=== PATIENT | male | born 1950 | race Caucasian/White ===

== ENCOUNTER → 2018-04-12 | Outpatient (CLI) | payer OTHER ==
[~2018-04-12] MED LIST: ALB18R INH; ALBU8.5H12 IH; ALLO100T70 PO; ALLOPURINOL; AMOX-559 PO; DOC100 PO; DOCU-416 PO; FLOMAX; FLONASE; FLU60SYR30 IM ONLY; FLUT16SP19 NS; GLUC-198 PO; GUAI120L3 PO; HYDR-2946 PO; IBUP600T22 PO; LISI-362 PO; LISI20TA29 PO; LOR5/325 PO; MONT10TA PO; NAPR220C12 PO; OMEG-11 PO; OMEP40CA48 PO; PNEU0.5D3 IM; PREDNISONE; TAMS0.4C25 PO
--- NOTE | 2018-04-12 14:41 | EKG ---
FACILITY: [facility] PATIENT NAME: ALEXA BENAVIDES : [id number] MR: [id number] V: [id number] EXAM DATE: ORDERING PHYSICIAN: SYDNEY ORTIZ TECHNOLOGIST: REJI Test Reason : BRADICARDIA Blood Pressure : / mmHG Vent. Rate : 048 BPM Atrial Rate : 048 BPM P-R Int : 218 ms QRS Dur : 100 ms QT Int : 466 ms P-R-T Axes : 026 039 044 degrees QTc Int : 416 ms Sinus bradycardia with 1st degree AV block Otherwise normal ECG When compared with ECG of 21-JUL-2017 08:54, MS interval has increased Nonspecific T wave abnormality no longer evident in Lateral leads Referred By: ANGEL Confirmed By:
== END ==
LOC: RESP 09:43
PROVIDERS: ATTEND Internal Medicine
DX: Z02.9 Encounter for administrative examinations, unspecified (principal)

== ENCOUNTER → 2018-10-04 | Outpatient (CLI) | payer OTHER ==
[~2018-10-04] MED LIST changes: +LOSA50TA80 PO; +PNEI IJ
--- NOTE | 2018-10-04 11:51 | RADIOLOGY IMAGING REPORT ---
FACILITY: [facility] PATIENT NAME: Cesar Molina : 1950 MR: [id number] V: [id number] EXAM DATE: ORDERING PHYSICIAN: DANIA GOLDBERG TECHNOLOGIST: Location: [facility] [place] Patient: Cesar Molina : 1950 Visit/Account:[id number] Date of Sevice: 10/04/2018 CT ABDOMEN PELVIS W/O CON HISTORY: Bilateral kidney stones, history of lithotripsy TECHNIQUE: Axial images acquired through the abdomen/pelvis. Coronal and sagittal reformatting also performed. No IV contrast administered.Dose Lowering Technique One of the following dose optimization techniques was utilized in the performance of this exam: Autom ated exposure control; adjustment of the mA and/or kV according to the patient's size; or use of an i terative reconstruction technique. Specific details can be referenced in the facility's radiology C T exam operational policy. COMPARISON: March 27, 2014 FINDINGS: Visualized lung bases: There Is a 4 mm calcified granuloma inferior lingula Hepatobiliary: Negative. Spleen: Negative. Adrenals: Negative. Pancreas: Negative. Kidneys ureters and bladder: There is moderate perinephric stranding bilaterally. At least seven non obstructing calculi are identified in the right renal collecting system measuring up to [address] At least six nonobstructing calculi are identified in the left renal collecting system measurin g up to 4 mm in diameter. There is no evidence of hydronephrosis or hydroureter. There are small co rtical hypodensities in the upper poles of both kidneys measuring less than a centimeter are too smal l to characterize Genitalia: Prostate gland is moderately enlarged impinging upon the floor the bladder. GI: There is diverticulosis of the left-sided colon although no CT evidence of acute diverticulitis Vessels/spaces/nodes: There mild atherosclerotic calcifications throughout the abdomen and pelvis Bones/soft tissues: There is a small umbilical hernia containing fat. There are spondylotic changes of the thoracolumbar spine Additional findings: None pertinent. IMPRESSION: Multiple bilateral nonobstructing calculi in the renal collecting systems measuring up to 4 mm in trace meter. Moderate perinephric stranding bilaterally Subcentimeter cortical hypodensities upper poles of both kidneys are too small to characterize Diverticulosis left-sided colon although no CT evidence of acute diverticulitis Small umbilical hernia containing fat Report Dictated By: Lily Henderson MD at 10/04/2018 11:37 AM Report E-Signed By: Lily Henderson MD at 10/04/2018 11:47 AM WSN:[email or web address]
== END ==
LOC: CT 01:26
PROVIDERS: ATTEND Urology
DX: N20.0 Calculus of kidney (principal); K57.30 Diverticulosis of large intestine without perforation or abscess without bleeding; K42.9 Umbilical hernia without obstruction or gangrene; I70.8 Atherosclerosis of other arteries; N40.0 Benign prostatic hyperplasia without lower urinary tract symptoms
CPT/HCPCS: 74176

== ENCOUNTER 2018-10-20 00:54 | Day surgery (SDC) | payer OTHER ==
[2018-10-17 09:46] LABS: PLATELET COUNT, AUTOMATED 197 K/uL (150-450)
--- NOTE | 2018-10-19 17:58 | HISTORY AND PHYSICAL ---
DATE OF ADMISSION: October 20, 2018 PREOPERATIVE DIAGNOSIS Bilateral kidney stones. HISTORY OF PRESENT ILLNESS Patient is a 68-year-old white male with a long history of kidney stones who in recent followup was noted to have increasing stone burden on a low-dose CT ESWL. He had approximately six to seven stones in each kidney ranging from 1 to 4 mm, primarily in the lower poles. Options were discussed, including continued watchful waiting versus urologic intervention with extracorporeal shock wave lithotripsy and/or ureteroscopy. Patient has elected to undergo treatment at this time to decrease his ongoing stone burden. PAST MEDICAL HISTORY 1. Kidney stones. 2. Asthma. 3. Elevated PSA with a history of three negative biopsies, most recently October 2015. 4. Benign prostatic hyperplasia. 5. ED. 6. Hypertension. 7. Gastroesophageal reflux disease. 8. TB exposure as a child. PAST SURGICAL HISTORY 1. Ear surgeries times three. 2. Tonsillectomy and adenoidectomy. 3. Colonoscopy. 4. Extracorporeal shock wave lithotripsy times three, last in August 2016. 5. Left knee arthroscopy. 6. Right shoulder arthroscopy. 7. Deviated nasal septum repair. CURRENT MEDICATIONS 1. Allopurinol. 2. Losartan. 3. Flomax. 4. Glucosamine with chondroitin. ALLERGIES No known drug allergies. FAMILY HISTORY Noncontributory. REVIEW OF SYSTEMS Patient denies shortness of breath, nausea, vomiting, fever, chills, chest pain, productive cough, bleeding disorder, liver disease. PHYSICAL EXAMINATION GENERAL: Patient is a well-developed, well-nourished, white male in no acute distress. HEENT: Normocephalic, atraumatic. CHEST: Clear to auscultation bilaterally. CARDIOVASCULAR: Regular rate and rhythm. ABDOMEN: Soft, nontender. No masses are palpated. GENITOURINARY: Deferred. EXTREMITIES: Without clubbing, cyanosis, or edema. NEUROLOGIC: Nonfocal. IMPRESSION A 64-year-old white male with bilateral kidney stones. PLAN We will perform extracorporeal shock wave lithotripsy and/or ureteroscopy as indicated. [facility]
[2018-10-20] VITALS (7 sets, daily range): BP systolic 96–117; BP diastolic 61–74
[~2018-10-20] VITALS: Ht 172.7 cm; Wt 79.8 kg
[2018-10-20] MEDS ORDERED: MIDAZOLAM 2 MG/2 ML VIAL IVP PRN (06:45)
[2018-10-20] MEDS ORDERED: LIDOCAINE/SOD BICARB 8.4% SYR ID ONE (06:45)
[2018-10-20] MEDS ORDERED: NORMOSOL R SOLN(*) 1000 ML BAG 1,000 ML IV PRN (06:45)
[2018-10-20] MEDS ORDERED: ceFAZolin(*) 1 GM VIAL 1 GM in NS(*) 0.9% 100 ML ADDVANT BAG 100 ML IVPB ONE (06:45)
[2018-10-20] MEDS ORDERED: FAMOTIDINE 20 MG TAB PO ONE (06:45)
[2018-10-20] MEDS ORDERED: fentaNYL CITR 100 MCG/2 ML AMP ONE (06:57)
[2018-10-20] MEDS ORDERED: PROPOFOL EMUL(*) 10MG/ML 20 ML 20 ML ONE (07:04)
[2018-10-20] MEDS ORDERED: LIDOCAINE 2% IV 100 MG/5ML SYR ONE (07:06)
--- NOTE | 2018-10-20 07:43 | RADIOLOGY IMAGING REPORT ---
FACILITY: PATIENT NAME: Cesar Molina : 1950 MR: [id number] V: [id number] EXAM DATE: ORDERING PHYSICIAN: DANIA GOLDBERG TECHNOLOGIST: Location: [facility] - [place] Patient: Cesar Molina : 1950 Visit/Account:[id number] Date of Sevice: 10/20/2018 Abdomen: Indication: Nephrolithiasis. Technique: A single supine view of the abdomen was obtained. Comparison: CT scan dated 10/04/2018. Findings: There are some tiny calcifications projected over the lower pole of the left kidney, sugges tive of nephrolithiasis. They all appear to be less than 3 mm in size. No definite calcifications are observed over the right kidney. There are no suspicious calcifications in the paraspinal regions. There are multiple round calcifications in the pelvis, typical of phlebol iths. The intestinal gas pattern is unremarkable. There is mild degenerative disc disease in the lumbar spi ne. The skeletal structures are otherwise unremarkable. IMPRESSION: There are tiny calcifications projected over the lower pole of the left kidney, suggestiv e of nephrolithiasis. Report Dictated By: Simba Lawton MD at 10/20/2018 7:31 AM Report E-Signed By: Simba Lawton MD at 10/20/2018 7:39 AM WSN:[id number]
[2018-10-20] MEDS ORDERED: ONDANSETRON 4 MG/2 ML VIAL ONE (08:12)
[2018-10-20] MEDS ORDERED: KETOROLAC 30 MG/ML VIAL ONE (08:12)
--- NOTE | 2018-10-20 09:44 | OPERATIVE REPORT 1 ---
EVENT DATE: October 20, 2018 SURGEON: Alfonso Renae MD ANESTHESIOLOGIST: Elier López MD ANESTHESIA: General. PREOPERATIVE DIAGNOSIS Bilateral renal calculi. POSTOPERATIVE DIAGNOSIS Bilateral renal calculi. PROCEDURE PERFORMED Left extracorporeal shock wave lithotripsy ESTIMATED BLOOD LOSS Minimal. IV FLUIDS Crystalloids. DRAINS None. COMPLICATIONS None. CONDITION The patient was taken to recovery room awake and in stable condition. STATEMENT OF MEDICAL NECESSITY The patient is a 68-year old white male with a history of kidney stones who was noted to have increasing bilateral stone burden on surveillance x-ray. He was noted to have six to seven stones on each side with a maximum size approximately 4 mm in both kidneys. The left appeared to have slightly greater overall stone burden than the right. Options were discussed. He elected to undergo extracorporeal shock wave lithotripsy. We will plan to perform treatment on the left side today and follow up on the right in the near future. DESCRIPTION OF OPERATION PERFORMED The patient was brought to the operating room and after general anesthetic was obtained, he was placed supine on the lithotripsy table. Two-plane fluoroscopy was used to target the stones in the left lower pole. First, the upper most stone, measuring approximately 3 x 3 mm, was placed in the lithotripsy cross hairs in two planes. Treatment was begun at a power setting of 2 and gradually increased to a power setting of 3 over the course of the first 300 shocks. A 3- minute pause was then performed and treatment was resumed. The power was gradually increased to a power setting of 7 over the course of the first 1,000 shocks. Intermittent two-plane fluoroscopy was used to ensure the cross hairs remained on the stone and stone fragment pile. A total of 1,300 shocks were given to this stone area. Following this, the cross hairs were repositioned on the lower pole more inferior, where a total of three stones in close proximity were targeted. These measured 4, 4 and 3 mm in size. Treatment was resumed here and was gradually increased to a power setting of 8.5. He received a total of 1,700 more shocks to this area to give a total of 3,000 shocks to the left kidney. At the conclusion of treatment, the patient was awakened in the operating room and taken to the recovery area in stable condition. PLAN We will allow the patient to be discharged home today on Peterson, Colace and Motrin. He is to continue his Flomax. We will also have him start the head- down protocol tomorrow and we will have him return to the operating room in four to six weeks for treatment on the right side. MTDD
--- NOTE | 2018-10-20 10:47 | NUR ---
0945- PT. TRANSFERRED TO PHASE 2 VIA STRETCHER WITH THE SIDERAILS UP. SEE ADMISSIONS ASSESSMENT. 0950- BROUGHT TO THE BEDSIDE. 1000- TURNED PT. O2 OFF AND RETURNED HIM TO ROOM AIR. 1015- SBAR GIVEN TO JANEL CAMACHO.
== END 2018-10-20 09:45 | disposition home or self-care (01) ==
LOC: OR 00:54
PROVIDERS: ATTEND Urology
DX: N20.0 Calculus of kidney (principal)
CPT/HCPCS: 36415; 50590; 74018; 81001; 85025; 87088; J0690; J1885; J2001; J2405; J2704; J3010; J7050

== ENCOUNTER 2018-12-01 01:26 | Day surgery (SDC) | payer OTHER ==
--- NOTE | 2018-11-28 12:14 | EKG ---
FACILITY: [facility] [place] PATIENT NAME: ALEXA BENAVIDES : [id number] MR: [id number] V: [id number] EXAM DATE: ORDERING PHYSICIAN: DANIA GOLDBERG TECHNOLOGIST: HUSSAIN Test Reason : PREOP-LYTHOTRYPSY Blood Pressure : / mmHG Vent. Rate : 051 BPM Atrial Rate : 051 BPM P-R Int : 182 ms QRS Dur : 088 ms QT Int : 424 ms P-R-T Axes : 059 066 063 degrees QTc Int : 390 ms Sinus bradycardia Minimal voltage criteria for LVH, may be normal variant Borderline ECG When compared with ECG of 12-APR-2018 08:33, IN interval has decreased Confirmed by ANTHONY BATISTA ([id number]) on 11/28/2018 8:39:52 PM Referred By: YUSUF Confirmed By:ANTHONY BATISTA
--- NOTE | 2018-11-30 19:51 | HISTORY AND PHYSICAL ---
DATE OF ADMISSION: December 01, 2018 CHIEF COMPLAINT Bilateral kidney stones. HISTORY OF PRESENT ILLNESS Patient is a 68-year-old white male with a long history of kidney stones who in followup was noted to have increasing bilateral stone burden. He was subsequently taken to the operating room on October 20 and underwent left extracorporeal shock wave lithotripsy. He is now being returned to the operating room to treat his right side with possible followup ureteroscopy. PAST MEDICAL HISTORY 1. Kidney stones. 2. Asthma. 3. Elevated PSA. 4. BPH. 5. ED. 6. Hypertension. 7. Gastroesophageal reflux disease. 8. Tuberculosis exposure as child. PAST SURGICAL HISTORY 1. Ear surgery times three. 2. Tonsillectomy and adenoidectomy. 3. Colonoscopy. 4. Extracorporeal shock wave lithotripsy times four. 5. Left knee arthroscopy. 6. Right shoulder arthroscopy. 7. Deviated nasal septum surgery. CURRENT MEDICATIONS 1. Allopurinol. 2. Losartan. 3. Flomax. 4. Glucosamine and chondroitin. ALLERGIES No known drug allergies. FAMILY HISTORY Noncontributory. SOCIAL HISTORY Patient is and lives in [place], [place], employed at the [employer]. REVIEW OF SYSTEMS Patient denies chest pain, shortness of breath, nausea, vomiting, fever, chills, productive cough, liver disease, bleeding disorders, or chronic headaches. PHYSICAL EXAMINATION GENERAL: Patient is a well-developed, well-nourished white male in no acute distress. HEENT: Normocephalic, atraumatic. CHEST: Clear to auscultation bilaterally. CARDIOVASCULAR: Regular rate and rhythm. ABDOMEN: Soft, nontender. No masses are palpated. GENITOURINARY: Deferred to the OR. EXTREMITIES: Without clubbing, cyanosis, or edema. NEUROLOGIC: Nonfocal. IMPRESSION A 68-year-old white male with a history of bilateral stones, now for right, possible left extracorporeal shock wave lithotripsy. PLAN Right extracorporeal shock wave lithotripsy. JIMENAD
[~2018-12-01] VITALS: Ht 172.7 cm; Wt 80.3 kg
[2018-12-01] MEDS ORDERED: KETAMINE HCL-NS 50 MG/5 ML SYR ONE (09:44)
[2018-12-01] MEDS ORDERED: DEXAMETHASONE SOD PHOS 10MG/ML ONE (09:44)
[2018-12-01] MEDS ORDERED: fentaNYL CITR 100 MCG/2 ML AMP ONE (09:44)
[2018-12-01] MEDS ORDERED: ONDANSETRON 4 MG/2 ML VIAL ONE (09:44)
[2018-12-01] MEDS ORDERED: LIDOCAINE 2% IV 100 MG/5ML SYR ONE (09:44)
[2018-12-01] MEDS ORDERED: PROPOFOL EMUL(*) 10MG/ML 20 ML 20 ML ONE (09:44)
[2018-12-01 09:51] VITALS: BP 124/88
--- NOTE | 2018-12-01 09:57 | RADIOLOGY IMAGING REPORT ---
FACILITY: [facility] [place] PATIENT NAME: Cesar Molina : 1950 MR: [id number] V: [id number] EXAM DATE: ORDERING PHYSICIAN: DANIA GOLDBERG TECHNOLOGIST: Location: [facility] Patient: Cesar Molina : 1950 Visit/Account:[id number] Date of Sevice: 11/28/2018 KUB SINGLE VIEW ABDOMEN HISTORY: KIDNEY NOTES COMPARISON MADE TO PREVIOUS STUDY OF 10/20/2018 FINDINGS: There are no obvious renal or expected ureteral course calcifications within either kidney. The smal l M punctate calcifications are seen over the expected lower pole of left kidney. There are phleboli ths in the pelvis. IMPRESSION: 1. No significant change in appearance KUB when compared to previous study. Minimal punctate calcif ications suggested over the lower pole left kidney. Report Dictated By: Siddhartha Soares MD at 12/01/2018 9:46 AM Report E-Signed By: Siddhartha Soares MD at 12/01/2018 9:52 AM WSN:[email or web address]
[2018-12-01] MEDS ORDERED: NORMOSOL R SOLN(*) 1000 ML BAG 1,000 ML IV PRN (10:00)
[2018-12-01] MEDS ORDERED: LIDOCAINE/SOD BICARB 8.4% SYR ID ONE (10:00)
[2018-12-01] MEDS ORDERED: MIDAZOLAM 2 MG/2 ML VIAL IVP PRN (10:00)
[2018-12-01] MEDS ORDERED: ceFAZolin(*) 1 GM VIAL 1 GM in NS(*) 0.9% 100 ML ADDVANT BAG 100 ML IVPB ONE (10:00)
[2018-12-01] MEDS ORDERED: FAMOTIDINE 20 MG TAB PO ONE (10:00)
[2018-12-01] MEDS ORDERED: KETOROLAC 30 MG/ML VIAL ONE (10:23)
[2018-12-01] MEDS ORDERED: ePHEDrine 25 MG/5 ML DISP.SYR IVP ONE (11:25)
--- NOTE | 2018-12-01 12:47 | OPERATIVE REPORT 1 ---
EVENT DATE: December 01, 2018 SURGEON: Alfonso Renae MD ANESTHESIOLOGIST: Hai Kirby MD ANESTHESIA: General. PREOPERATIVE DIAGNOSIS Right renal calculi. POSTOPERATIVE DIAGNOSIS Right renal calculi. PROCEDURE PERFORMED Right extracorporeal shock wave lithotripsy ESTIMATED BLOOD LOSS Minimal. IV FLUIDS Crystalloids. DRAINS None. COMPLICATIONS None. CONDITION Patient is taken to the recovery room awake and in stable condition. STATEMENT OF MEDICAL NECESSITY The patient is a 68-year-old white male with a long history of kidney stones who was noted to have increasing stone burden by surveillance imaging. He was recently taken to the operating room approximately six weeks ago and underwent left extracorporeal shock wave lithotripsy. He is now being returned to the operating room for planned right treatment. He has approximately four to five stones primarily in the right lower pole measuring 2 mm to 4 mm in size and a 2 mm stone in the mid pole. Patient is now being brought to the operating room for right treatment. DESCRIPTION OF OPERATION PERFORMED The patient was brought to the operating room. After general anesthetic was obtained, he was placed supine on the lithotripsy table. His right lower pole kidney was visualized with two plane fluoroscopy. The cross-hairs were placed on the larger of the stones in the lower pole measuring approximately 4 mm. The other stones were just lateral to this. Treatment was begun at a power setting of 3 for the first 300 shocks and then a three minute pause was performed and then treatment was resumed and the power was gradually increased to a power setting of 7.5 over the course of the first 2000 shocks. The last 1000 shock power setting was moved up to 8. Intermittent two-plane fluoroscopy was used to ensure the cross-hairs remained on the stone and stone fragment pile throughout treatment. At the conclusion of treatment, no remaining significant fragments could be identified. The patient was awakened in the operating room and taken to the recovery area in stable condition. PLAN We will let the patient be discharged home today. He has pain medicine and Flomax from his prior treatment. We will plan to see him in the Urology Clinic in approximately six to eight weeks for a followup imaging modality to evaluate the stone status. He is also to continue head-down protocol for the next 7-10 days. [facility] HEALTHAn[facility]
[2018-12-01 12:50] VITALS: BP 134/80
[2018-12-01 13:32] VITALS: BP 125/81
[2018-12-01 14:04] VITALS: BP 131/83
[2018-12-01 14:12] VITALS: BP 122/89
[2018-12-01 14:14] VITALS: BP 110/84
== END 2018-12-01 12:50 | disposition home or self-care (01) ==
LOC: OR 01:26
PROVIDERS: ATTEND Urology
DX: N20.0 Calculus of kidney (principal); R00.1 Bradycardia, unspecified; I10 Essential (primary) hypertension
CPT/HCPCS: 50590; 74018; 81001; 87088; 93005; 94667; J0690; J1100; J1885; J2001; J2405; J2704; J3010; J3490; J7050

== ENCOUNTER → 2019-02-20 | Outpatient (CLI) | payer OTHER ==
--- NOTE | 2019-02-20 17:27 | RADIOLOGY IMAGING REPORT ---
[facility] PATIENT NAME: Cesar Molina : 1950 MR: [id number] V: [id number] EXAM DATE: ORDERING PHYSICIAN: DANIA GOLDBERG TECHNOLOGIST: Location: [facility] - [place], [place] Patient: Cesar Molina : 1950 Visit/Account:[id number] Date of Sevice: 02/20/2019 Exam type: KUB SINGLE VIEW ABDOMEN History: Follow-up kidney stones Comparison: Arch 2018. Findings: The bowel gas pattern is nonspecific. No definite calcifications identified over the renal shadows. Numerous calcination occasions in the pelvis appears similar to the prior study likely representing phleboliths. There are mild spondylotic changes the visualized lumbar spine IMPRESSION: 1. No definite calcifications are identified projecting over the renal shadows Report Dictated By: Lily Henderson MD at 02/20/2019 5:22 PM Report E-Signed By: Lily Henderson MD at 02/20/2019 5:23 PM WSN:[email or web address]
== END ==
LOC: RAD 13:35
PROVIDERS: ATTEND Urology
DX: N20.0 Calculus of kidney (principal)
CPT/HCPCS: 74018